=== PATIENT | female | born 1960 | race Hispanic/Latino ===

== ENCOUNTER 2024-11-17 19:20 | Inpatient (IN) | payer MEDICARE ==
[~2024-11-17] VITALS: Ht 154.9 cm; Wt 61.2 kg
[2024-11-17 20:03] LABS: BASOPHILS % 0.2 % (0.0-1.0); HEMATOCRIT 46.6 % (34.2-44.1); HEMOGLOBIN 16.2 g/dL (12.0-16.0); LYMPHOCYTES # (AUTO) 1.1 (1.0-3.2); LYMPHOCYTES % 9.2 % (18.0-39.1); MEAN CORPUSCULAR HEMOGLOBIN 30.4 pg (28-32); MEAN CORPUSCULAR HGB CONC 34.8 g/dL (31-35); MEAN CORPUSCULAR VOLUME 87.4 fL (81-99); MONOCYTES # (AUTO) 0.3 (0.2-0.8); MONOCYTES % 2.8 % (4.4-11.3); NEUTROPHILS # (AUTO) 10.2 (2.1-6.9); NEUTROPHILS % 87.3 % (38.7-80.0); PLATELET COUNT 358 x10e3/uL (140-360); RED BLOOD COUNT 5.33 x10e6/uL (3.6-5.1); RED CELL DISTRIBUTION WIDTH 13.1 % (11.7-14.4); WHITE BLOOD COUNT 11.72 x10e3/uL (4.8-10.8)
[2024-11-17] MEDS: SODIUM CHLORIDE 0.9% 1000ML 1,000 ML IV STA (20:03)
[2024-11-17] MEDS: ONDANSETRON HCL INJ 2MG/ML 2ML 2 MG/ML VIAL IV STA (20:03)
[2024-11-17] MEDS: Morphine 4mg INJECTION 4 MG/ML INJ IV STA (20:05)
[2024-11-17 20:12] LABS: BILIRUBIN,URINE NEGATIVE (NEGATIVE); CLARITY,URINE CLEAR (CLEAR); COLOR,URINE YELLOW (YELLOW); GLUCOSE, URINE 500 (NEGATIVE); KETONES,URINE 2+ (NEGATIVE); LEUKOCYTE ESTERASE ,URINE NEGATIVE (NEGATIVE); NITRITE,URINE NEGATIVE (NEGATIVE); PH,URINE 6.5 (5 - 7); PROTEIN,URINE DIPSTICK 2+ (NEGATIVE); URINE UROBILINOGEN 1 mg/dL (0.2 - 1)
[2024-11-17 20:15] LABS: BACTERIA,URINE MODERATE /HPF; EPITHELIAL CELLS,URINE MODERATE /LPF; MUCUS,URINE FEW; WBC,URINE (MAN) 0-5 /HPF (0-5)
[2024-11-17 20:27] LABS: ALANINE AMINOTRANSFERASE 39 IU/L (0-55); ALBUMIN 4.2 g/dL (3.5-5.0); ALBUMIN/GLOBULIN RATIO 1.2 (0.8-2.0); ALKALINE PHOSPHATASE 128 IU/L (40-150); ANION GAP 17.3 mmol/L (8-16); BILIRUBIN,TOTAL 0.9 mg/dL (0.2-1.2); BLOOD UREA NITROGEN 9 mg/dL (7-26); BUN/CREATININE RATIO 11 (6-25); CALCIUM 8.9 mg/dL (8.4-10.2); CARBON DIOXIDE 21 mmol/L (22-29); CHLORIDE 102 mmol/L (98-107); CREATINE KINASE 141 IU/L (29-168); EST GLOMERULAR FILTRATION RATE 82 ML/MIN (>=60); GLUCOSE 249 mg/dL (74-118); LIPASE 14 U/L (8-78); POTASSIUM 3.3 mmol/L (3.5-5.1); SODIUM 137 mmol/L (136-145); TOTAL PROTEIN 7.8 g/dL (6.5-8.1)
[2024-11-17 20:34] LABS: TROPONIN I < 0.001 ng/mL (0-0.300)
[2024-11-17] MEDS ORDERED: IOPAMIDOL 370 MG/ML 100 ML INFUS..BTL INJ ONE (20:53)
[2024-11-17] MEDS ORDERED: Morphine 4mg INJECTION 4 MG/ML INJ IV PRN (22:30)
[2024-11-17] MEDS ORDERED: ONDANSETRON HCL INJ 2MG/ML 2ML 2 MG/ML VIAL IV PRN (22:30)
[2024-11-17] MEDS: SODIUM CHLORIDE 0.9% 1000ML 1,000 ML IV SCH (23:20)
[2024-11-18] VITALS (7 sets, daily range): BP systolic 106–130; BP diastolic 53–62; PULSE 66–76; RESP 17–18; TEMP 97.3–98.4; O2SAT 97–100
[2024-11-18 05:46] LABS: BASOPHILS % 0.1 % (0.0-1.0); EOSINOPHILS % 0.5 % (0.0-6.0); HEMATOCRIT 39.2 % (34.2-44.1); HEMOGLOBIN 13.4 g/dL (12.0-16.0); LYMPHOCYTES # (AUTO) 1.3 (1.0-3.2); LYMPHOCYTES % 16.8 % (18.0-39.1); MEAN CORPUSCULAR HEMOGLOBIN 30.5 pg (28-32); MEAN CORPUSCULAR HGB CONC 34.2 g/dL (31-35); MEAN CORPUSCULAR VOLUME 89.1 fL (81-99); MONOCYTES # (AUTO) 0.6 (0.2-0.8); NEUTROPHILS # (AUTO) 5.7 (2.1-6.9); NEUTROPHILS % 74.3 % (38.7-80.0); PLATELET COUNT 297 x10e3/uL (140-360); RED CELL DISTRIBUTION WIDTH 13.2 % (11.7-14.4); WHITE BLOOD COUNT 7.67 x10e3/uL (4.8-10.8)
[2024-11-18 06:13] LABS: ALBUMIN/GLOBULIN RATIO 1.2 (0.8-2.0); ANION GAP 10.9 mmol/L (8-16); BILIRUBIN,TOTAL 0.7 mg/dL (0.2-1.2); CALCIUM 7.1 mg/dL (8.4-10.2); CREATININE, SERUM 0.62 mg/dL (0.57-1.11); TOTAL PROTEIN 5.6 g/dL (6.5-8.1)
[2024-11-18 06:17] LABS: POTASSIUM 2.9 mmol/L (3.5-5.1)
[2024-11-18] MEDS ORDERED: LEVOTHYROXINE50 MCG PO (10:05)
[2024-11-18] MEDS ORDERED: ATORVASTATIN CA20 MG PO (10:05)
[2024-11-18] MEDS ORDERED: METFORMIN HCL500 MG PO (10:05)
[2024-11-18] MEDS: POTASSIUM CHLORIDE 20MEQ/100ML 100 ML IV ONE ×2 (15:31→23:38)
[2024-11-19] VITALS (7 sets, daily range): BP systolic 105–149; BP diastolic 56–74; PULSE 63–79; RESP 16–20; TEMP 97.5–98.2; O2SAT 98–100
[2024-11-19 05:58] LABS: BASOPHILS % 0.5 % (0.0-1.0); EOSINOPHILS # (AUTO) 0.1 (0.0-0.4); EOSINOPHILS % 1.3 % (0.0-6.0); HEMATOCRIT 39.2 % (34.2-44.1); HEMOGLOBIN 13.3 g/dL (12.0-16.0); LYMPHOCYTES # (AUTO) 1.4 (1.0-3.2); LYMPHOCYTES % 22.1 % (18.0-39.1); MEAN CORPUSCULAR HEMOGLOBIN 30.4 pg (28-32); MEAN CORPUSCULAR HGB CONC 33.9 g/dL (31-35); MEAN CORPUSCULAR VOLUME 89.5 fL (81-99); MONOCYTES # (AUTO) 0.3 (0.2-0.8); NEUTROPHILS # (AUTO) 4.4 (2.1-6.9); NEUTROPHILS % 70.9 % (38.7-80.0); PLATELET COUNT 288 x10e3/uL (140-360); RED BLOOD COUNT 4.38 x10e6/uL (3.6-5.1); RED CELL DISTRIBUTION WIDTH 13.2 % (11.7-14.4); WHITE BLOOD COUNT 6.15 x10e3/uL (4.8-10.8)
[2024-11-19 09:43] LABS: ALBUMIN 3.3 g/dL (3.5-5.0); ALBUMIN/GLOBULIN RATIO 1.3 (0.8-2.0); ANION GAP 15.4 mmol/L (8-16); BILIRUBIN,TOTAL 0.9 mg/dL (0.2-1.2); CALCIUM 7.9 mg/dL (8.4-10.2); CREATININE, SERUM 0.65 mg/dL (0.57-1.11); TOTAL PROTEIN 5.9 g/dL (6.5-8.1)
[2024-11-19 09:45] LABS: POTASSIUM 3.4 mmol/L (3.5-5.1)
[2024-11-19] MEDS: POTASSIUM CHLORIDE 10MEQ EA PO ONE (21:15)
[2024-11-20] VITALS: BP 143/79; PULSE 61; RESP 16; TEMP 97.9; O2SAT 98
[2024-11-20 04:00] VITALS: BP 118/62; PULSE 70; RESP 16; TEMP 98.2; O2SAT 97
[2024-11-20 05:53] LABS: BLOOD UREA NITROGEN < 5 mg/dL (7-26); CALCIUM 7.9 mg/dL (8.4-10.2); CARBON DIOXIDE 22 mmol/L (22-29); CHLORIDE 106 mmol/L (98-107); CREATININE, SERUM 0.65 mg/dL (0.57-1.11); EST GLOMERULAR FILTRATION RATE 98 ML/MIN (>=60); GLUCOSE 123 mg/dL (74-118); SODIUM 138 mmol/L (136-145)
[2024-11-20 06:40] LABS: BUN/CREATININE RATIO 8 (6-25)
[2024-11-20 07:51] VITALS: BP 133/70; PULSE 62; RESP 18; TEMP 97.8; O2SAT 99
[2024-11-20 11:00] VITALS: BP 120/71; PULSE 64; RESP 18; TEMP 98.1; O2SAT 97
[2024-11-20 15:54] VITALS: BP 143/97; PULSE 72; RESP 18; TEMP 98; O2SAT 100
[2024-11-20 19:25] VITALS: BP 136/79; PULSE 77; RESP 20; TEMP 97.7; O2SAT 99
[2024-11-24 06:06] LABS: HEPATITIS A ANTIBODY IGM (P) Negative; HEPATITIS B CORE IGM (P) Negative; HEPATITIS B SURFACE AG (P) Negative; HEPATITIS C ANTIBODY Non Reactive
== END 2024-11-20 20:00 | disposition home or self-care (01) | DRG 390 ==
LOC: ER 19:30 → ERHOLD 22:17 → MED/SURG 11-18 07:50
PROVIDERS: ADMIT Internal Medicine; ATTEND Internal Medicine
DX: K56.609 Unspecified intestinal obstruction, unspecified as to partial versus complete obstruction (principal); E11.65 Type 2 diabetes mellitus with hyperglycemia; E87.6 Hypokalemia; R74.8 Abnormal levels of other serum enzymes; I10 Essential (primary) hypertension; E11.69 Type 2 diabetes mellitus with other specified complication; E78.5 Hyperlipidemia, unspecified; Z79.84 Long term (current) use of oral hypoglycemic drugs; E03.9 Hypothyroidism, unspecified; Z71.81 Spiritual or religious counseling; Z90.49 Acquired absence of other specified parts of digestive tract; Z90.710 Acquired absence of both cervix and uterus; Z79.899 Other long term (current) drug therapy
CPT/HCPCS: 36415; 74018; 74022; 74177; 80048; 80053; 81001; 82550; 82948; 83690; 83735; 84484; 85025; 93005; 99284; J2270; J2405; J2470; J2543; J3480; J7030; Q9967